=== PATIENT | male | born 1935 | race Caucasian/White ===

== ENCOUNTER 2019-03-20 17:50 | Inpatient (IN) | payer OTHER, MEDICARE, SELFPAY ==
[2019-03-20] VITALS (8 sets, daily range): BP systolic 70–92; BP diastolic 48–58; PULSE 74–110; RESP 14–20; TEMP 36.6–37.4; O2SAT 81–94
[2019-03-20] MEDS: morphine 4 mg/mL SDV 1 mL IVP (18:12)
[2019-03-20] MEDS: ondansetron 2 mg/ML SDV 2 mL 4 MG IVP (18:12)
[2019-03-20] MEDS: ipratropium-albuterol 3 mL Neb INHALATION ×2 (18:16)
[2019-03-20] MEDS: sodium chloride 0.9% 1,000 ML 999 ML IV (18:25)
--- NOTE | 2019-03-20 19:30 | W.ED.GENADLT ---
HPI - General Adult General: Chief complaint: General Medical Stated complaint: sob/cancer pt Time Seen by Provider: 03/20/19 18:14 Source: family History of Present Illness: HPI narrative: Taiwo is an 83-year-old male who comes in with family with report of generalized weakness. He has a history of lung cancer, the family is unsure of what type. The last time he was hospitalized was at the [facility] system in [place]. We will send for old records. They state that he moved here 2 weeks ago as family wanted to keep him closer and he is supposed to be in [address] [place] [address] hospice. He has not been enrolled in [address] [place] [address] hospice at this time but family states they cannot wait he needs comfort care as he is too much for them to deal with at home. They are adamant he is a DO NOT RESUSCITATE comfort measures only. Review of Systems General: Reports: ROS unobtainable due to mental status PFSH ED PFSH: Statuses (acute, chronic, etc) shown below reflect problem list status as previously entered and may not be historically accurate Medical History (Updated 03/20/19 @ 19:48 by Jacqui Ballesteros) Lung cancer (Acute) Rheumatoid arthritis (Acute) Physical Exam Const: GENERAL APPEARANCE: lethargic and frail appearing NUTRITIONAL APPEARANCE: cachectic ORIENTATION/CONSCIOUSNESS: Yes oriented to person and Yes lethargic HENMT: COMMON NORMALS: normocephalic, head/scalp atraumatic, hearing grossly normal bilaterally, external ears normal, EAC's normal, external nose normal and moist oral mucous membranes HEAD & SCALP: normal to inspection, normocephalic and atraumatic FACE & SINUS: normal facial exam and face symmetric NOSE: external nose normal and nares normal EXTERNAL EAR: Yes external ears normal EXTERNAL AUDITORY CANAL: EAC's normal MOUTH: oral and palatal mucosa normal and tongue normal Eye: COMMON NORMALS: PERRL, EOMs intact bilaterally, conjunctivae normal and no scleral icterus GENERAL EYE: normal appearance of both eyes and normal light reflex CONJUNCTIVA: Yes conjunctivae normal SCLERA: sclerae normal CORNEA: Yes corneas normal PUPIL: Yes PERRL DIRECT OPHTHALMOSCOPY: Yes normal light reflex Neck/C-Spine: COMMON NORMALS: full ROM, no lymphadenopathy, supple and no JVD GENERAL: Yes normal visual inspection and Yes trachea midline CERVICAL SPINE: Yes cervical ROM normal Chest: COMMONS NORMALS: inspection of chest normal and palpation of chest normal Resp: AUSCULTATION: rales, rhonchi, wheezes and diminished lung sounds Cardio: COMMON NORMALS: no JVD, regular rate, regular rhythm, S1 normal heart sound, S2 normal heart sound, no gallops, no clicks, no murmurs and no rub JUGULAR VENOUS DISTENTION: no JVD RATE: regular rate RHYTHM: regular rhythm HEART SOUNDS: S1 normal and S2 normal GI: COMMON NORMALS: soft to palpation, non-tender, no hepatosplenomegaly and no masses INSPECTION: Yes normal to inspection PALPATION: Yes soft and Yes no hepatosplenomegaly : COMMON NORMALS: Yes no CVA tenderness BLADDER/KIDNEY EXAM: Yes no CVA tenderness Back/Pelvis: COMMON NORMALS: no CVA tenderness, thoracic and lumbar spine normal to inspection, no thoracic nor lumbar tenderness and thoraco-lumbar ROM normal Extremity: COMMON NORMALS: normal to inspection, full ROM, normal capillary refill, no joint enlargement, no clubbing, cyanosis or edema and no calf tenderness Neuro: SENSORIUM/ORIENTATION: Yes oriented to person and Yes lethargic CRANIAL NERVES: Yes CN normal except as noted SPEECH: abnormal speech Details: slurred GAIT: Yes unable to assess gait Skin: COMMON NORMALS: no rashes or lesions noted, skin turgor normal, no jaundice, no petechiae and no mottling GENERAL SKIN EXAM: no rashes or lesions noted and turgor normal Course Vital Signs: Vital signs: Vital Signs Temperature 98.5 F 03/20/19 17:51 Pulse Rate 81 03/20/19 18:27 Respiratory Rate 14 03/20/19 18:16 Blood Pressure 70/48 03/20/19 17:51 Pulse Oximetry 93 03/20/19 18:16 MDM - General Adult MDM Narrative: Medical decision making narrative: Family brings Mr. Kaufman in with a concern of generalized weakness. He has cancer and is in hospice but moved here and will need to be back in hospice. Clinically at this time he appears as though he may have to come into the hospital for comfort care. I reviewed the case in full with Dr. Jensen, and he agrees to place admission orders. We will send for a record request from the [facility] in [place] to get more baseline information on the patient. Discharge Plan Discharge Patient Disposition: Admitted As Inpatient Clinical Impression: Lung cancer Condition: Stable Coding Level of Care Code ED Mortgage Broker for Janey Acuna
--- NOTE | 2019-03-20 20:34 | PC.NURSE ---
Patient was brought in by family. Family reports patient is on hospice care but is from [place], [place] and does not have a hospice agency since coming to stay with his daughter here. Patient became very short of breath and was in pain upon arrival. Patient was 81% on 4L NC . Patient was able to give his name and date of but was unsure where he was and how long he had been here. Family is answering questions.
--- NOTE | 2019-03-20 22:03 | P.HP_ITS ---
Providers/Chief Complaint Admitting Physician: Francis Jensen MD Chief Complaint: LUNG CANCER History of Present Illness Taiwo Kaufman is a 83 year old male who was brought in by the family for failure to thrive. As per my discussion with ED physician patient was diagnosed with lung cancer, family does not know the type, we are not sure whether he got any chemo or radiotherapy or any surgery for his cancer. Family is not aware. Patient was at [facility] and was discharged from there. He moved to [facility] around [place], and [facility]. At home family has not been able to take care of him, they ran out of his morphine, patient was not eating well, he also fell yesterday, he has been able to eat a little bit, his mentation was becoming fluctuant. Family decided to take him to ER for further care. Family is agreeable for comfort versus hospice care for now. Unfortunately patient is not able to tell us any details and by the time I went to interview him family was not at the bedside Will request records from the hospital to get more information, for now I will keep him on comfort measures Review of Systems Const: Reports: fever; Denies: chills Eyes: Denies: change in vision ENMT: Denies: throat pain Card: Denies: chest pain GI: Denies: abdominal pain : Denies: flank pain Musc: Reports: back pain, extremity pain, joint pain and joint swelling; Denies: extremity swelling Skin/Breast: Reports: itching, redness, sores, new lesion, dry skin and nail changes Neuro: Denies: headache Psych: Reports: anxiety and memory loss Endo: Denies: excessive urination Santhosh/Lymph: Denies: easy bruising All/Imm: Denies: hives Medications/Allergies Allergies Allergy/AdvReac Type Severity Reaction Status Date / Time No Known Allergies Allergy Verified 03/20/19 17:58 PFSH Acute PFSH: Statuses (acute, chronic, etc) shown below reflect problem list status as previously entered and may not be historically accurate Medical History (Updated 03/20/19 @ 19:48 by Jacqui Ballesteros) Lung cancer (Acute) Rheumatoid arthritis (Acute) Surgical History (Updated 03/20/19 @ 23:30 by Francis Jensen MD) Surgical history unknown (Acute) Social History (Updated 03/20/19 @ 23:30 by Francis Jensen MD) Smoking and tobacco status: former smoker Alcohol intake: never Substance/Drug Use: never Adopted: No Caregiver/support person: Yes Lives independently: No Household members: family Vitals/I&O/Wt Last Vital Signs Temp 99.3 F 03/20/19 21:58 Pulse 74 03/20/19 21:58 Resp 20 H 03/20/19 21:58 BP 91/53 03/20/19 21:58 Pulse Ox 93 03/20/19 21:58 Physical Exam Narrative: EXAM NARRATIVE: Patient is arousable able to communicate and comprehend my questions but his mood is a bit irritable He is agitated for most of my questions Otherwise he is oriented to time and person but not place His mentation is fluctuant He kept scratching his skin He has multiple healing non-blanchable lesions on his skin His skin is extremely dry S1, S2 Patient extremely dehydrated Lungs are clear to auscultation without adventitious sounds Abdomen soft nontender Extremity no signs ischemia gangrene or ulcer Flat affect, cognitive impairment, memory loss Muscle mass loss A&P Assessment and plan (1) Lung cancer: Family and the caregiver are not familiar with his type of lung cancer He was getting hospice care at [place] and was recently referred for via hospice For now I will keep him on comfort measures He is not in any distress, he is awake and alert I am not sure about his stage of lung cancer, as per the family he has not been able to eat properly, he is very weak he has fallen yesterday, and family is not able to provide supportive services anymore Social service consult We will get records from his hospital Pain management with Roxanol 0.25 mL every 2 as needed Oxycodone 10 mg every 4 as needed cyclobenzaprine 5 mg as needed Status: Acute Qualifiers: Laterality: unspecified laterality Lung location: unspecified part of lung Qualified Code(s): C34.90 - Malignant neoplasm of unspecified part of unspecified bronchus or lung Code(s): C34.90 - Malignant neoplasm of unspecified part of unspecified bronchus or lung Attestations Medical Necessity Statement*: Considering failure to thrive and history of lung cancer I am suspecting he will stay in the hospital more than 2 midnights and will benefit from hospice referral Time Spent in Patient Care: 40 Coding Level of Care Code Acute Welfare Project Manager for Chg Fwd Diagnoses Lung cancer C34.90 Laterality: unspecified laterality Lung location: unspecified part of lung
[2019-03-20] MEDS: sodium chloride 0.9% 1,000 ML 100 ML IV (22:41)
[2019-03-21] VITALS (13 sets, daily range): BP systolic 92–159; BP diastolic 55–90; PULSE 72–102; RESP 17–25; TEMP 36.4–37; O2SAT 88–97
[2019-03-21] MEDS: levothyroxine 125 mcg Tablet PO (08:56)
[2019-03-21] MEDS: oxyCODONE 5 mg IR Tab/Cap PO ×2 (10:53→15:53)
--- NOTE | 2019-03-21 11:42 | PC.CHAP ---
Pastoral Care Encounter/Spiritual Assessment Type of Contact [] Declined miller head wet process visit [] Patient/Family/Request visit [] Outpatient visit [] Follow-up visit [] Physician referral [] Code/Alert [x] Routine visit [] Staff referral [x] Actively dying [] Patient sleeping [x] Family support [] [] Out of room [] Palliative care [x] [] Receiving care in room [] Pre-surgical visit [] Trauma [] Long length of stay [] ICU visit [] Other: Relational/Emotional Strength x[] Patient feels connected with others/family/visitors/staff [] Distress [] Loneliness/isolation [] Abandonment Spirituality of Patient [x] Person of Lidya [x] Attends Druze of their Lidya [x]Believes in Prayer []x Reads Bible or Tenriism materials [] There are Spiritual issues to be addressed Blasting Coal Miner Interventions [x] Prayer [x] Active listening [x] Non-anxious presence [x] Spiritual/emotional support [] Crisis/trauma care [] Spiritual counseling [] Bereavement support [] Provided bereavement packet [] Provided Bible/devotional materials [] Provided toy/stuffed animal, coloring book to patient or family member [x] Completed spiritual assessment [] Provided Communion [] Anointing/Ilion [] Salvation [] Other: Impact on Illness or Injury [] Angry [] Fearful [] Anxious [] Often cries [] Exhaustion [] Unable to work [] Unable to attend presybeterian [] Unable to walk/stand [] Unable to read [] Unable to drive [] Unable to eat/drink [] Unable to sleep [] Unable to be with family [] Other: Summary patient has great lidya and knows his time is short great family surport Time spent with patient 20 min
[2019-03-21] MEDS: cyclobenzaprine 10 mg Tablet 5 MG PO (14:25)
[2019-03-21] MEDS: diphenhydrAMINE 12.5 mg/5 mL UDC 10 mL PO (14:29)
--- NOTE | 2019-03-21 15:29 | P.PN_ITS ---
Subjective Subjective: Interval history: Overnight H&P and labs reviewed. Family is available at bedside. They offer some more history today. Patient was originally diagnosed with lung cancer about 3 to 4 years ago. Per their understanding this was not metastatic however was compressing onto his ribs. Options of proceeding with chemoradiation were discussed with him at that time, however patient declined these options. He also had significant coronary artery disease at that time therefore it was thought that his mortality would be extremely high should he decide to proceed with chemoradiation. At that time he was prognosticator to live about 6 months. He has however survived all these years since then. He moved from [place] to [place] around [place] of 2018 to come live with his daughter here. From here on they are going to be living in [place]. While in [place] he had a home hospice. The family tried to transfer hospice services from [place] to [place], however it appears that this did not martin out and he was eventually discharged from hospice. We do not have any records of his malignancy at this time. The patient and family is not interested in pursuing further diagnostics in this record or to see the extent of cancer involvement. He reports that over the past few months he has been having failure to thrive and has poor oral intake. He has also been falling more at home. His last fall was earlier this week after which he has needed assistance of 2 people with ambulating within the house. Patient and family are looking for comfort measures only. They are keen to explore options of senior living residence with hospice versus home with hospice. 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 They report that patient has been discharged since moving to [place] around [place] this year. They are keen to explore further options of senior living placement with hospice versus home with hospice. Patient and family declined any further imaging at this time to delineate the extent of malignant involvement. Patient states he has made peace with the fact that he has extensive disease. Though he is on comfort measures, they are interested in continuing his cardiac medications including his metoprolol and Imdur. However given his blood pressure of 90/56 I will hold Imdur for now and resume metoprolol only. We will additionally resume levothyroxine. Social service consult We will get records from his hospital Pain management with Roxanol 0.25 mL every 2 as needed Oxycodone 10 mg every 4 as needed cyclobenzaprine 5 mg as needed Status: Acute Qualifiers: Laterality: unspecified laterality Lung location: unspecified part of lung Qualified Code(s): C34.90 - Malignant neoplasm of unspecified part of unspecified bronchus or lung Code(s): C34.90 - Malignant neoplasm of unspecified part of unspecified bronchus or lung Attestations Medical Necessity Statement*: Awaiting disposition, placement. Coding Level of Care Code Acute Mica Miner Blasting for [facility] Fwd Diagnoses Lung cancer C34.90 Laterality: unspecified laterality Lung location: unspecified part of lung
[2019-03-22] VITALS (10 sets, daily range): BP systolic 111–137; BP diastolic 65–81; PULSE 88–98; RESP 16–20; TEMP 36.4–37.1; O2SAT 87–96
[2019-03-22] MEDS: oxyCODONE 5 mg IR Tab/Cap PO ×2 (08:01→12:09)
[2019-03-22] MEDS: levothyroxine 125 mcg Tablet PO (08:02)
--- NOTE | 2019-03-22 12:18 | PM.PN ---
Subjective Subjective: Interval history: No new complaints today. Feels comfortable. Sitting comfortably in bed. Medications: Reviewed: Yes Vitals/I&O/Wt Last Vital Signs Temp 98.7 F 03/22/19 11:28 Pulse 88 03/22/19 11:28 Resp 16 03/22/19 12:09 BP 111/65 03/22/19 11:28 Pulse Ox 92 03/22/19 11:28 03/21/19 03/22/19 03/22/19 22:59 06:59 14:59 Intake Total 680 / 1160 120 / 120 Output Total 450 / 950 425 / 1375 125 / 125 Balance 230 / 210 -425 / -215 -5 / -5 Weight last 48 hrs Weight 65.516 kg Physical Exam Narrative: EXAM NARRATIVE: GEN: Awake, alert and oriented, no acute distress CVS: S1S2 N RS: CTA B/L except crackles over RUL Abd: Soft, nt/nd , bs+ STOCK CHECKERER: no focal neuro deficits A&P Assessment and plan (1) Lung cancer: Per extensive discussion with family yesterday, he was getting hospice care at [place]. They report that patient has been discharged since moving to [place] around [place] this year. After discussion with other family members they have come to the decision that he would prefer to go to a prison with end-of-life care. Patient and family declined any further imaging at this time to delineate the extent of malignant involvement. Patient states he has made peace with the fact that he has extensive disease. Still awaiting records. Though he is on comfort measures, they are interested in continuing his cardiac medications including his metoprolol and Imdur. However given given that his blood pressure has been between 90s to low 100s, we will hold off on resuming Imdur for now. Metoprolol will be resumed however at a reduced dose of 25 mg p.o. daily. Levothyroxine was resumed yesterday. director of community services working on placement at [facility]. Status: Acute Qualifiers: Laterality: unspecified laterality Lung location: unspecified part of lung Qualified Code(s): C34.90 - Malignant neoplasm of unspecified part of unspecified bronchus or lung Code(s): C34.90 - Malignant neoplasm of unspecified part of unspecified bronchus or lung Attestations Medical Necessity Statement*: Patient remains admitted pending placement at prison with end-of-life care. Coding Level of Care Code Acute Grocery Cashier for g Fwd Diagnoses Lung cancer C34.90 Laterality: unspecified laterality Lung location: unspecified part of lung
--- NOTE | 2019-03-22 15:16 | P.DS_ITS ---
Discharge Providers Date of Admission: 03/20/19 19:30 Date of Discharge: 03/22/19 Attending Provider at Admission: Francis Jensen MD Attending Provider at Discharge: Griselda Lyon MD Diagnoses at Discharge Discharge Diagnosis (1) Lung cancer: Status: Acute Qualifiers: Laterality: unspecified laterality Lung location: unspecified part of lung Qualified Code(s): C34.90 - Malignant neoplasm of unspecified part of unspecified bronchus or lung Reason for Visit Reason for Visit: Reason For Visit: LUNG CANCER Hospital Course Discharge Summary: Please refer to my progress note from today. No interval events since patient was last seen. he has been accepted for placement at SNF with hospice services and will be transferring to [facility]. Physical Exam Narrative: EXAM NARRATIVE: GEN: Awake, alert and oriented, no acute distress CVS: S1S2 N RS: CTA B/L except crackles over RUL Abd: Soft, nt/nd , bs+ ESTATE AND TRUST TAX PRINCIPAL: no focal neuro deficits Discharge Data Vitals: Last Vital Signs Temp 98.7 F 03/22/19 11:28 Pulse 88 03/22/19 11:28 Resp 16 03/22/19 14:35 BP 111/65 03/22/19 11:28 Pulse Ox 92 03/22/19 11:28 Discharge Plan Discharge Patient Disposition: Xfer SNF Condition: Stable Prescriptions: New diphenhydramine HCl 12.5 mg/5 mL Elixir 12.5 mg PO Q4H PRN (Reason: Itching) 30 Days Qty: 30 RF: 0 metoprolol succinate 25 mg Tablet Extended Release 24 Hr 25 mg PO DAILY 30 Days Qty: 30 RF: 0 Continued morphine concentrate 100 mg/5 mL (20 mg/mL) Solution 5 mg PO Q2H PRN (Reason: Pain) RF: 0 lovastatin 40 mg Tablet 40 mg PO DAILY RF: 0 meclizine 25 mg Tablet 25 mg PO TID PRN (Reason: Dizziness Or Vertigo) RF: 0 levothyroxine 125 mcg Tablet 125 mcg PO DAILY RF: 0 gabapentin 300 mg Capsule 300 mg PO TID RF: 0 cyclobenzaprine 5 mg Tablet 5 mg PO TID PRN (Reason: Muscle Spasm) RF: 0 oxycodone 10 mg Tablet 10 mg PO Q4H PRN (Reason: Pain) RF: 0 Discontinued metoprolol succinate 50 mg Tablet Extended Release 24 Hr 50 mg PO DAILY RF: 0 isosorbide mononitrate 30 mg Tablet Extended Release 24 Hr 30 mg PO DAILY RF: 0 Discharge Orders: Discharge Order (Routine); Ordered 03/22/19 Ordered By: Griselda Lyon Discharge Diet: Usual diet Discharge Activity: Resume usual activity Discharge Attestations Time Spent in Discharge Care*: less than 30 min Quality Metrics Clinical Quality Measures During this hospital stay, did patient experience: None Coding Level of Care Code Acute Convalescent Sitter for Janey Acuna Diagnoses Lung cancer C34.90 Laterality: unspecified laterality Lung location: unspecified part of lung
--- NOTE | 2019-03-22 17:21 | PC.RESP ---
Information left with patient for Pulmonary Rehab.
--- NOTE | 2019-03-22 17:27 | PC.RESP ---
Information to patient for Lung Cancer and Pulmonary Rehab.
== END 2019-03-22 17:42 | disposition skilled nursing facility (03) | DRG 182 ==
LOC: ER 20:08 → MEDSURG 20:09
PROVIDERS: Admitting Provider Internal Medicine; Emergency Provider Emergency Medicine; Visit Provider Student in an Organized Health Care Education/Training Program
DX: C34.90 Malignant neoplasm of unspecified part of unspecified bronchus or lung (principal); I25.10 Atherosclerotic heart disease of native coronary artery without angina pectoris; Z88.2 Allergy status to sulfonamides; Z79.899 Other long term (current) drug therapy; Z79.84 Long term (current) use of oral hypoglycemic drugs; Z79.891 Long term (current) use of opiate analgesic
CPT/HCPCS: 12345; 94640; 96374; 99281; J2270; J2405; J2930; J7030